=== PATIENT | male | born 1960 | race Caucasian/White ===

== ENCOUNTER 2022-12-27 08:13 | Day surgery (SDC) | payer MEDICARE ==
[2022-12-27] MEDS ORDERED: Lactated Ringers 1,000 ML IV SCH (08:30)
[2022-12-27] MEDS ORDERED: CEFAZOLIN 2 GM-D5W BAG** 2 GM/50 ML ML IV SCH (08:30)
[2022-12-27] MEDS ORDERED: CEFAZOLIN 2 GM-D5W BAG** 2 GM/50 ML ML IV ONE (08:48)
[2022-12-27] MEDS ORDERED: Lactated Ringers 1,000 ML IV ONE ×3 (08:48→14:26)
[2022-12-27 09:09] LABS: Hematocrit 48.1 % (42-50); Hemoglobin 15.9 g/dL (12.5-18.0); Mean Cell Volume 90.8 fL (78-100); Mean Corpuscular Hgb Concent. 33.1 g/dL (32-36); Mean Platelet Volume 9.8 fL (7.5-11.0); Platelet Count 154 x10^3/uL (150-450); Red Cell Distribution Width 13.7 % (11.5-14.0); White Blood Count 7.1 x10^3/uL (4.0-10.5)
[2022-12-27 09:21] LABS: ALBUMIN 4.1 g/dL (3.5-5.0); ALKALINE PHOSPHATASE 68 U/L (38-126); ANION GAP 13.3 MEQ/L (5-15); BLOOD UREA NITROGEN 9 mg/dL (9-20); CHLORIDE 107 mmol/L (98-107); Calcium 8.5 mg/dL (8.4-10.2); Carbon Dioxide 24 mmol/L (22-30); Creatinine 1 0.58 mg/dL (0.66-1.25); EST GLOMERULAR FILTRATION RATE > 60.0 ML/MIN; Glucose 185 mg/dL (74-106); Potassium 4.1 mmol/L (3.5-5.1); SGOT/AST 47 U/L (17-59); SGPT/ALT 51 U/L (0-50); SODIUM 140 mmol/L (137-145)
[2022-12-27 09:23] LABS: INR 0.98 (0.8-3.0); PROTIME 10.7 SECONDS (9.4-12.5); PTT 28.9 SECONDS (25.1-36.5)
[2022-12-27] MEDS ORDERED: Marcaine 0.5%/Epinephrine 10 ML ONE (10:07)
[2022-12-27] MEDS ORDERED: DEXMEDETOMIDINE 80 MCG/20ML-NS IV ONE (10:07)
[2022-12-27] MEDS ORDERED: Decadron 4 MG INJ ONE ×2 (10:07→13:46)
[2022-12-27] MEDS ORDERED: Xylocaine-Mpf 2% 5 Ml Vial ONE (10:07)
[2022-12-27] MEDS ORDERED: Versed 2 MG/2 ML Injection ONE (10:20)
[2022-12-27] MEDS ORDERED: SUBLIMAZE 100 MCG/2 ML ONE ×3 (10:20→14:19)
[2022-12-27] MEDS ORDERED: Zemuron 100 MG/10 ML ONE (10:49)
[2022-12-27] MEDS ORDERED: DIPRIVAN 200 MG/20 ML IV ONE (10:50)
[2022-12-27] MEDS ORDERED: BRIDION 200MG/2ML IV ONE (13:46)
[2022-12-27] MEDS ORDERED: Zofran 4 MG/2 ML VIAL ONE (13:46)
[2022-12-27] MEDS ORDERED: TORAdol 30 mg Injection ONE (13:46)
[2022-12-27 16:26] VITALS: BP 134/78; PULSE 78; O2SAT 94
--- NOTE | 2022-12-27 20:44 | XRAY ---
Indication: Left foot gastrocnemius resection, Paul calcaneal osteotomy lateral side, and possible dorsi flexor wedge removal of soft tissue mass. Intraoperative fluoroscopy provided for 6 minutes 33 seconds. 23 digital spot images submitted for interpretation demonstrates osteotomy mid calcaneus and osteotomy shaft 1st metatarsal both with intact fixation screws. Correlate with intraoperative findings/report.
--- NOTE | 2022-12-28 09:07 | OP ---
SURGERY DATE/TIME: 12/27/2022 1053 PREOPERATIVE DIAGNOSES: 1) Neurofibromatosis type 1. 2) Left foot pain. 3) Calcaneal varus. 4) Pes planus. 5) Peroneal overdrive. 6) Gastrocnemius equinus. 7) Neurofibroma of left foot. 8) Sural neuritis. POSTOPERATIVE DIAGNOSES: 1) Neurofibromatosis type 1. 2) Left foot pain. 3) Calcaneal varus. 4) Pes planus. 5) Peroneal overdrive. 6) Gastrocnemius equinus. 7) Neurofibroma of left foot. PROCEDURES: 1) Gastrocnemius resection. 2) Paul calcaneal osteotomy. 3) Dorsiflexory wedge first metatarsal. 4) Steindler stripping. 5) Peroneus longus, peroneus brevis tendon transfer. 6) Excision of neurofibroma left foot. 7) Sural nerve resection and burial into soleus muscle belly. SURGEON: Aaron Platt DPM. TREATING ENGINEER HELPER: None. ANESTHESIA: General plus a preoperative popliteal and neural block. See anesthesia report for details. HEMOSTASIS: Thigh tourniquet set to 350 mm of Mercury for a total of 120 total tourniquet minutes. ESTIMATED BLOOD LOSS: Approximately 150 cc. MATERIALS: One - 4.0 x 50 mm Ric headless variable compression screw. One - 6.5 x 50 mm partially threaded headed screw. One - 4.0 x 28 mm fully threaded compression screw. 4-0 PDS, 4-0 Monocryl, 3-0 Nylon. INJECTABLES: See anesthesia report for details. INDICATION FOR PROCEDURE: Matt is a very pleasant 62-year-old male known to my service for pain to the lateral aspect of the left foot secondary to a neurofibroma to the lateral aspect of the left foot just beneath the fifth metatarsal head. The patient was consented for this procedure from clinical examination. The patient demonstrated an isolated left lower extremity cavus with a right lower extremity pes planus. The patient does have an extensive history of neurofibroma all over his body including his lumbar spine. The patient indicates that his left lower extremity has gotten progressively worse since his initial surgery to his lumbar spine and he noticed a progression of his left foot in wearing out the tread on the lateral aspect of his leg this causes him a significant amount of pain with ambulation, shoe gear in conjunction with neurofibroma. Options were discussed with the patient in regards to options. The patient was given the option of proceeding with just excising the neurofibroma and seeing what happens. The patient does have extensive history of disability of the ankle secondary to cavus position as well as pain with palpation to the peroneal tendon and wished to proceed with the full reconstruction in order to get a plantigrade foot as well as reduce the pain secondary to neurofibroma. An EMG as well as MRI was taken prior to the procedure demonstrating no residual spinal tumors or recurrence of spinal tumors as well as EMG that suggested that there is some compression on the lumbar spine as well as lower extremity. The patient does have an appointment set for proceeding with neurosurgery consultation for pain to his back. However at this time, the patient is not a candidate to proceed with the cavus for reconstruction and incision of the neurofibroma as well as the sural nerve. The patient was extensively consented prior to surgical intervention. The patient understands all risks, benefits and complications of surgical intervention including but not limited to infection, hematoma, seroma, possibility of delayed wound healing, nonwound healing, possibility of delayed bone healing and nonbone healing and a situation called nonunion. The patient does understand that there is a potential for him to develop a stump neuroma or complex regional pain syndrome (CRPS) which is potentially a debilitating issue and maybe incurable. The patient also has been consented about the possibility of deep vein thrombosis and prophylaxis that we will perform in order to potentially prevent this from occurring. With all of this plenty of time was allowed for the patient to ask questions which were answered to the patient's satisfaction. It is with that we decided to proceed. DESCRIPTION OF PROCEDURE AND FINDINGS: The patient is brought into the postoperative anesthesia care unit and popliteal and femoral block was performed by the SALES REPRESENTATIVE [employer]. See anesthesia report for details. Following this the patient was brought into the OR and placed on the OR table in the supine position. At this time general anesthesia was administered until the patient was sedated. A well-padded thigh tourniquet was applied to the patient's left thigh and the tourniquet was set to 350 mm of Mercury in coordination with his blood pressure. At this time the left lower extremity was prepped and draped in the typical sterile fashion and lowered onto the surgical field. At this time attention was directed to the posterior medial aspect of the left ankle where there is a palpable dell from the gastrocnemius muscle. Incision was made just distal to this site being careful not to damage any neurovascular structures. A 10 blade was utilized and blunt dissection was carried down to the fascial layer. The fascial layer was then incised and the gastrocnemius aponeurosis was encountered. A pediatric speculum was then introduced rotated 90 degrees making excellent visualization of the gastrocnemius aponeurosis as well as clearly identifying the sural nerve. At this time the gastrocnemius resection is carried out utilizing a 10 blade and any fibrous bands that were encountered on palpation were then cut utilizing scissors. The foot was then tested and dorsiflexion improved. Copious amounts of sterile saline were utilized to flush the surgical site and a 4-0 Monocryl was utilized to coapt the fascia in a simple buried interrupted-type fashion as well as subcutaneous simple buried interrupted-type fashion. 3-0 Nylon was utilized in horizontal mattress-type fashion to coapt the skin edges in everted-type fashion. Attention then was directed to the lateral aspect of the calcaneus under fluoroscopic guidance. An oblique incision was made through the dorsal aspect of the skin being careful not to damage any neurovascular structures along the way this was carried out in distal plantar to proximal posterior orientation. The incision was carried down to the level of the bone where blunt dissection was performed to remove the periosteum from the bone. K-wires were introduced under calcaneal axial view. The distal K-wire was introduced perpendicular to longitudinal axis of the calcaneus and the proximal K-wire was introduced perpendicular to the longitudinal axis of the tibia. Following this a 31 mm sagittal saw was utilized to resect the leg which measured approximately 5 mm gaining neural position of the calcaneus when compressed. Following this access was provided to the plantar fascia and the Steindler stripping took place utilizing a heavy pair of scissors along the lateral aspect of the plantar fascia resecting distally on the first layer of the plantaris muscles. Following this, the calcaneus was pinned with the position of the calcaneus closed down and lateralized in order to give the patient more of the valgus position of calcaneus. Once again this was checked on fluoroscopic guidance and deemed to be in adequate position. This was checked on lateral and calcaneal axial views. From that standpoint the soft tissue planes were undermined at the proximal aspect of the same incision gaining access to the peroneus longus as well as peroneus brevis tendon. The sural nerve was retracted for the time being utilizing a loop vessel to keep the position intact. The peroneus longus was inspected and deemed to have a significant amount of thickening and tendon degeneration. The tendon was then debulked, pulled under tension and utilizing 4-0 PDS the peroneus longus was tenodesed to the peroneus brevis tendon. At this time a 4.0 x 50 and a 6.5 x 50 screw Ric headless compression as well as a partially threaded headed screw was introduced from the posterior aspect of the calcaneus gaining excellent compression through the osteotomy site. The site was then identified at the lateral aspect of Paul calcaneal osteotomy site and compression was fully achieved. At this time attention was directed to the dorsal aspect of the first metatarsal where under fluoroscopic guidance an incision was made and a wedge was taken out of the dorsal aspect of the first metatarsal gaining approximately 5 to 10 degrees of dorsiflexion. A 4.0 x 28 mm fully threaded screw was then introduced from the distal dorsal to plantar inferior orientation this was checked under fluoroscopic guidance and the foot was loaded to check to see if there was improvement of the first metatarsal position. At this time attention was then redirected towards the sural nerve where a [place] was utilized to find the soft tissue plane and guided to the posterior aspect of the ankle. The vessel loops were then carried up to the posterior of the ankle where incision was made and tonsil clamp was utilized to pull this through and threaded to a more proximal site of the sural nerve. At this time the distal extent of the sural nerve was resected utilizing a clean 15 blade and then pulled through to the proximal site. A double crush was performed utilizing two curved Parris's at the most proximal extent and then cauterization of the distal tip of the sural nerve was then performed at the tip of the sural nerve. A Jez needle was introduced and PDS was utilized to suture the sural nerve under minimal tension into the gastrocnemius muscle belly and passing through the gastrocnemius muscle belly which was carried through the opposite side of the leg and stitched to the posterior aspect of the soleus. At this time attention was directed to the lateral forefoot where over the fifth metatarsal the neurofibromatosis was removed. A combination of sharp and blunt dissection was utilized to incise the neurofibroma which after excising measured approximately 3.0 x 2.1 mm length with 6 mm of thickness. Following this copious amounts of sterile saline were utilized to flush the surgical site. 4-0 Monocryl was then utilized to coapt the subcutaneous skin edges for all surgical sites, 3-0 Nylon was then utilized in horizontal mattress-type fashion to adis the skin edges. At this time the leg was cleansed and dry. Betadine was applied to all incisions. A dressing consisting of Betadine, Adaptic, 4x4, Kerlix and a well-padded posterior splint with Sugar-Tong applied to the left lower extremity with the foot orthogonal relative to the longitudinal axis of the left leg. The patient was then reversed from anesthesia and returned to the postoperative anesthesia care unit with vital signs stable and vascular status intact. The patient handled the anesthesia as well as the procedure without significant complication. Postoperative orders as indicated in the patient's discharge chart.
== END 2022-12-27 16:45 | disposition home or self-care (01) ==
LOC: SDC 08:13
PROVIDERS: ATTEND Podiatrist Foot & Ankle Surgery
DX: Q85.01 Neurofibromatosis, type 1 (principal); M79.672 Pain in left foot; M21.172 Varus deformity, not elsewhere classified, left ankle; M21.42 Flat foot [pes planus] (acquired), left foot; M67.874 Other specified disorders of tendon, left ankle and foot; M21.962 Unspecified acquired deformity of left lower leg; G57.82 Other specified mononeuropathies of left lower limb; E11.9 Type 2 diabetes mellitus without complications
CPT/HCPCS: 27687; 27690; 28250; 28300; 28306; 36415; 64784; 64788; 73630; 76000; 76937; 80053; 82947; 85027; 85610; 85730; C1713; J0690; J1100; J1885; J2250; J2405; J2704; J3010

== ENCOUNTER 2023-11-16 09:04 | Day surgery (SDC) | payer MEDICARE ==
[2023-11-16 09:41] VITALS: RESP 18
[2023-11-16] MEDS ORDERED: Lactated Ringers 1,000 ML IV ONE (09:43)
[2023-11-16] MEDS: Lactated Ringers 1,000 ML IV SCH (10:00)
[2023-11-16 10:41] LABS: ANION GAP 10.9 MEQ/L (5-15); Calcium 9.5 mg/dL (8.4-10.2); Creatinine 1 0.64 mg/dL (0.66-1.25); EST GLOMERULAR FILTRATION RATE 107.7 ML/MIN; Potassium 4.1 mmol/L (3.5-5.1)
[2023-11-16] MEDS ORDERED: Xylocaine-Mpf 2% 5 Ml Vial ONE (11:37)
[2023-11-16] MEDS ORDERED: Versed 2 MG/2 ML Injection ONE (11:37)
[2023-11-16] MEDS ORDERED: DIPRIVAN 200 MG/20 ML IV ONE (11:37)
[2023-11-16 12:42] VITALS: BP 102/65; PULSE 66; TEMP 96.5; O2SAT 93
--- NOTE | 2023-11-16 13:25 | OP ---
SURGERY DATE: 11/16/2023 SURGERY TIME: 1136 PREOPERATIVE DIAGNOSIS: 1. DYSPHAGIA AND VOICE CHANGE. POSTOPERATIVE DIAGNOSIS: 1. ABNORMAL MUCOSA AT THE GASTROESOPHAGEAL JUNCTION. CHORDS HAVE NORMAL MOTION. PROCEDURE: 1. Esophagogastroduodenoscopy. SURGEON: Yann Barksdale M.D. ANESTHESIA: IV anesthesia. CONDITION: Stable. COMPLICATIONS: None. HISTORY OF PRESENT ILLNESS: The patient is a 63 year-old male that has the complaint of some dysphagia. He underwent MRI of the neck for spine assessment and he was found to have multinodular goiter and fine needle aspiration was performed that is subjectively benign. Discussed was had with the patient. Recommendations for EGD and laryngoscopy at the same time and he elected to proceed with that. FINDINGS: Frond-like, slightly abnormal mucosa at the gastroesophageal junction concerning for dysplasia. Biopsied. Chords normal motion. DESCRIPTION OF PROCEDURE: Patient brought to the endoscopy suite. Routinely positioned and prepared. Time-out performed. The patient was awake while we inserted the gastroscope into the mouth and the chords were directly visualized and he is asked to phonate. The chords have normal motion bilaterally. The patient then anesthetized with IV anesthesia by anesthesia. The scope was then inserted and advanced to the 3rd portion of the duodenum. The duodenum is normal in appearance. The stomach is normal in appearance, but then at the gastroesophageal junction, there is about a circumference Frond-like mucosal change that may be a cm or 2 and it is not visible on retroflexion in the stomach, but at least 4 biopsies are taken with a cold forceps for histology and then an antral biopsy taken to rule out Helicobacter pylori. The rest of the esophagus is normal. The stomach is suctioned out. The scope is withdrawn. RECOMMENDATIONS: Recommend follow-up in 2 weeks for biopsy results. I would surveil this area depending on the biopsy results. Regarding the dysphagia, it is likely just compressive symptoms from a large multinodular goiter with MRI showing extension to the inferior extent of the scan, so I would recommend getting a CT scan to fully evaluate any mediastinal component and consideration for thyroidectomy.
== END 2023-11-16 12:41 | disposition home or self-care (01) ==
LOC: SDC 09:04
PROVIDERS: ATTEND Surgery
DX: R13.10 Dysphagia, unspecified (principal); K22.89 Other specified disease of esophagus; R49.9 Unspecified voice and resonance disorder
CPT/HCPCS: 36415; 80048; J2250; J2704